=== PATIENT | female | born 1960 | race Caucasian/White ===

== ENCOUNTER 2022-11-02 09:11 | Outpatient (NON) | payer BC, SELFPAY | END 2022-11-02 09:12 | disposition home or self-care (01) | PROVIDERS: Visit Provider Nurse Practitioner | DX: C44.310 Basal cell carcinoma of skin of unspecified parts of face (principal) | CPT/HCPCS: 88305; 88331 ==

== ENCOUNTER 2025-08-26 11:26 | Emergency (ER) | payer BC, SELFPAY ==
--- OUTSIDE RECORDS SUMMARY | 2025-08-26 11:28 | XMS_ITS | Encounter Summary ---
Author Organization [facility] Address [address] [place] [address] Care Team Providers Care Slasher Tender Helper Name Role Phone Markus Orozco MD Primary Care Provider [phone]- [phone] Encounter Details Date Type Department Care Team (Late st Contact Info) Description 06/23/2024 [employer] Message Enc [facility] Family & Internal Medicine [facility] [address] [place] [address] [place] [address] [place] [address] Refill Wegovy Social History Tobacco Use Types Packs/Day Years Used Date Smoking Tobacco: Never Smokeless Tobacco: Never Comments:no hx tobacco use Alcohol Use Standard Drinks/Week Comments Yes 0 (1 standard drink = 0.6 oz pure alcohol) soccially /1 glass wine once monthly AUDIT-C Answer Date Recorded Frequency of Alcohol Consumption Never 08/22/2018 Average Number of Drinks Not on file 018 Frequency of Binge Drinking Not on file 08/06 PHQ-2 Answer Date Recorded Patient Health Questionnaire-2 Score 0 03/16/2023 Education Answer Date Recorded What is the highest level of school you have completed or the highest degree you have received? Some college, no degree 08/22/2018 Comments No Sex and Gender Information Value Date Recorded Sex Assigned at Female 12/13/2023 7:59 AM CDT Legal Sex Female 9:12 PM CDT Gender Identity Female 12/13/2023 7:59 AM CDT Sexual Orientation Straight 12/13/2023 7: 59 AM CDT Occupation Industry Job Start Date Job End Date Not on file Not on file Not on file Not on file documented as of this encounter Plan of Treatment Upcoming Encounters Date Type Department Care Team (Late st Contact Info) Description 05/14/2026 11:00 AM CDT Appointment [facility] [address] [place] [address] Margi Self, SAIRA [address] [facility] [address] [place] [address] documented as of this encounter Visit Diagnoses Not on filedocumented in this encounter Additional Health Concerns Assessment Noted Time PHQ-9 Depression Total Score: 0 10/21/19 22 10:29 AM PAPERHANGER documented as of this encounter Care Teams Slasher Tender Helper Relationship Specialty [place] [address] [place] [address] PCP - General FAMILY PRACTICE 08/22/18 documented as of this encounter
--- OUTSIDE RECORDS SUMMARY | 2025-08-26 11:28 | XMS_ITS | Encounter Summary ---
Author Organization [facility] Address [address] [place] [address] Care Team Providers Care Semiconductor Packages Tester Name Role Phone Markus Orozco MD Primary Care Provider [phone]- [phone] Encounter Details Date Type Department Care Team (Late st Contact Info) Description 05/17/2024 [employer] Message Enc [facility] Medical Group Family & Internal Medicine [facility] [address] [place] [address] [place] [address] [place] [address] Possible tick bite? Social History Tobacco Use Types Packs/Day Years [...] on file documented as of this encounter Progress Notes * Nicole Garcia MA - 05/18/2024 7:22 AM CDT Print to discuss with dr documented in this encounter Plan of Treatment Upcoming Encounters Date Type Department Care Team (Late st Contact Info) Description 05/14/2026 11:00 AM CDT Appointment [facility] [address] [place], [place] [id number] Margi Self NP [address] [facility] [address] [place] [address] documented as of this encounter Visit Diagnoses Not on filedocumented in this encounter Additional Health Concerns Assessment Noted Time PHQ-9 Depression Total Score: 0 10/21/19 22 10:29 AM ARTS THERAPIST documented as of this encounter Care Teams Semiconductor Packages Tester Relationship Specialty [place] [address] [place] [address] PCP - General FAMILY PRACTICE 08/22/18 documented as of this encounter
--- OUTSIDE RECORDS SUMMARY | 2025-08-26 11:28 | XMS_ITS | Encounter Summary ---
Author Organization [facility] Address [address] [place] [address] Care Team Providers Care Supervisor Pigment Making Name Role Phone Markus Orozco MD Primary Care Provider [phone]- [phone] Encounter Details Date Type Department Care Team (Late st Contact Info) Description 05/26/[address] [employer] [facility] Medical Group Family & Internal Medicine [facility] [address] [place] [address] [place] [address] [place] [address] Wegovy refill Social History Tobacco Use Types Packs/Day Years [...] Info) Description 05/14/2026 11:00 AM CDT Appointment [facility] [address] [place] [address] Margi Self, SAIRA [address] [facility] [address] [place] [address] documented as of this encounter Visit Diagnoses Not on filedocumented in this encounter Additional Health Concerns Assessment Noted Time PHQ-9 Depression Total Score: 0 10/21/19 22 10:29 AM VISUAL C DEVELOPER documented as of this encounter Care Teams Supervisor Pigment Making Relationship Specialty Start [place] [address] [place] [address] PCP - General FAMILY PRACTICE 08/22/18 documented as of this encounter
--- OUTSIDE RECORDS SUMMARY | 2025-08-26 11:29 | XMS_ITS | Data Portability ---
Author Organization [facility], [id number] Address [address] [place] [address] Assessment No assessment recorded. Plan of Treatment Reminders Order Date Submit Date Provider Last Modified By Organization Details Last Modified Time Details Appointments ANNUAL- EST 15 2025 10:00A M SHAGGY MERAZ Not available Not available Not available Lab None recorded. Referral None recorded. Procedures None recorded. Surgeries None recorded. Imaging MAMMO, screening , digital, bilateral 2024 [facility]25 [facility]), [address] [place], [address], 05/30/2025 11:39:57 Medication Orders valacyclo vir 500 mg tablet 2024 025 [facility], [address] [facility] [address], [address], 05/30/2025 10:00:38 Patient TargetsNo targets recorded. Patient InstructionsNo instructions recorded. Reason for Referral None Reported. Results Created Date Observation Date Name Description Value Unit Range Abnormal Flag Note LastModifiedBy Organization Detail LastModifiedTime 04/30/2004/30/2025 DEXA No [email or web address] [address] [place], [address], 05/16/2025 09:33:21 05/11/20 25 05/10/2025 MAMMO , scree yamileth, bilat eral No observ ation record ed. [email or web address] [facility] [address] [place], [address], 05/23/2025 16:28:01 Result Notes None recorded. 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 Fibromyalg ia, Problem Code: 729.1; Problem Code Type: ICD-9; Startdate: '2001'; Not Available [facility] 12:19:23 Uterine fibroid polyp 585488187 Active Uterine Fibroids, Startdate: '1983'; Not Available [facility] 12:19:23 Genital herpes simplex 00807869 Active Genital Herpes, Startdate: '1993'; Problem Code Descriptio n: 'Genital Herpes'; Not Available [facility] 12:19:23 Arthritis 0751950 Active Arthritis, Startdate: '02/13'; Problem Code Descriptio n: 'Arthritis '; Not Available [place] 12:19:23 Gastroeso phageal reflux disease 716164788 Active 2014 Acid Reflux/MARIAM D, Problem Code: 530.81; Problem Code Type: ICD-9; Not Available [facility] 12:19:23 Atrophic vulva 221274053 Active 2016 Vulvar atrophy, Problem Code: 624.1; Problem Code Type: ICD-9; Not Available [facility] 12:19:23 Herpes labialis 5203919 Active 2024 SHAGGY MERAZ [address], [place], [address] , [facility] 5 09:57:45 Disorder of breast 54364797 Active 2024 Bebeto [place], [facility] 12:40:16 Lesion of vulva 058297093 Active 2024 SHAGGY Sheldon YUMIKO MERAZ [address], [place], [address] , [facility] 13:01:20 Problem Notes None recorded. Procedures Surgical History Date Name Laterality Status Provider Name and Address Organization Details Recorded Time 07/05/20 25 Incision & Drainage Procedure Note (UEHRC) completed SHAGGY Sheldon YUMIKO MERAZ [address], [place], [address], [facility] 07/05/2025 13:13:24 05/10/20 25 Date of Last Mammogram completed Marian Amador (TERMED) [facility] 05/30/2025 09:40:36 09/06/19 23 Date of Last Pap Smear completed Marian Amador (TERMED) [facility] 05/30/2025 09:43:01 09/06/19 22 Date of Last Colonoscopy completed Marian Amador (TERMED) [facility] 05/24/2025 11:23:32 Breast augmentation w/implt completed Not Available [facility] 01/04/2025 14:24:59 Jackie arthrs srg rt8tr cuf rpr completed Not Available [facility] 01/04/2025 14:24:59 Appendectomy completed Not Available [facility] 01/04/2025 14:25:00 Laparoscopic cholecystectomy completed Not Available [facility] 01/04/2025 14:25:00 Removal of ovary(s) completed Not Available [facility] 01/04/2025 14:25:00 cataract surgery completed Not Available [facility] 01/04/2025 14:25:00 dilation and curettage completed Not Available [facility] 01/04/2025 14:25:00 tonsillectomy completed Not Available [facility] 01/04/2025 14:25:00 hysterectomy completed Not Available [facility] 01/04/2025 14:25:00 vaginal hysterectomy completed Not Available [facility] 01/04/2025 14:25:01 colonoscopy completed Not Available [facility] 01/04/2025 14:25:01 Dilation and Curettage completed Marian Amador (TERMED) [place] [facility] [place] [facility] 05/30/2025 09:40:44 Orthopedic Surgery completed Marian Amador (TERMED[place] [facility] 05/30/2025 09:40:44 Oophorectomy completed Marian Amador (TERMED) [place] [facility] 05/30/2025 09:40:44 Total Hysterectomy completed Marian Amador (TERMED[place] [facility] 05/30/2025 09:40:45 Appendectomy completed Marian Amador (TERMED[place] [facility] 05/30/2025 09:40:45 Breast Surgery completed Marian Amador (TERMED[place] [facility] 05/30/2025 09:40:45 Caesarean Section completed Marian Amador (TERMED[place] [facility] 05/30/2025 09:40:45 Colonoscopy completed Marian Amador (TERMED[place] [facility] 05/30/2025 09:40:45 Imaging Results None recorded. Procedure Notes None recorded. Medical Equipment None Reported. Allergies Allergen ID Allergen Name Allergen Category Reaction Reaction Severity Criticality Documentation Date Start Date Code Code System Note Provider Name and Address Organization Details Recorded Time 723792 propoxyph meg hydrochlo ride medicatio n Not available Not available Not available 01/04/2025 02891 RxNorm Aller gyRea ction : 'naus ea, vomit , shake s'; Not Available [facility] 12:28:25 816298 Duragesic medicatio n Not available Not available Not available 01/04/2025 36980 8 RxNorm Aller gyRea ction : 'naus ea, vomit , shake s'; Not Available [facility] 12:28:25 705057 codeine medicatio n Not available Not available Not available 01/04/2025 2670 RxNorm Aller gyRea ction : 'naus ea, vomit , shake s'; Not Available [facility] 12:28:25 497706 diphenhyd ramine hydrochlo ride medicatio n Not available Not available Not available 01/04/2025 1362 RxNorm Dicyc lomin e Diarr hea, Dicyc lomin e Nasal conge stion , Dicyc lomin e Nause a, Dicyc lomin e Vomit ing, Other Diarr hea, Other Nasal conge stion , Other Nause a, Other Vomit ing Not Available [facility] 12:28:25 Medications Name Sig Start Date Stop Date Status Note LastModified by Organization Details LastModified Time mucus rlf d 60-600mg 12hr tablets TAKE 1 TABLET BY MOUTH TWICE DAILY active Not Available Not Available No t Available valacyclovi r 500 mg tablet TAKE 1 TABLET BY MOUTH EVERY 12 HOURS FOR 3 DAYS active Not Available Not Available No t Available levothyroxi ne 25 mcg tablet TAKE 1 TABLET BY MOUTH ONCE DAILY IN THE MORNING active Not Available Not Available No t Available amoxicillin 875 mg tablet 05/30 completed Not Available Not Available Not Available mirtazapine 45 mg tablet TAKE 1 TABLET BY MOUTH NIGHTLY AT BEDTIME 07/05 completed Not Available Not Available Not Available albuterol sulfate HFA 90 mcg/actuati on aerosol inhaler INHALE 2 PUFFS INTO THE LUNGS EVERY 4 HOURS NEEDED active Not Available Not Available No t Available fluticasone propionate 50 mcg/actuati on nasal spray,suspe nsion USE 2 SPRAY(S) IN EACH NOSTRIL TWICE DAILY FOR 3 DAYS THEN 1 ONCE DAILY THEREAFTE R 07/05 completed Not Available Not Available Not Available [facility] 1.7 mg/0.75 mL subcutaneou s pen injector INJECT 1 SYRINGE SUBCUTANE OUSLY ONCE A WEEK active Not Available Not Available No t Available We[facility] 1 mg/0.5 mL subcutaneou s pen injector ADMINISTE R 1 MG UNDER THE SKIN 1 TIME A WEEK FOR WEIGHT LOSS 05/30 completed Not Available Not Available Not Available [facility] 0.5 mg/0.5 mL subcutaneou s pen injector ADMINISTE R 0.5 MG UNDER THE SKIN 1 TIME A WEEK FOR WEIGHT LOSS 05/30 completed Not Available Not Available Not Available Vitals Date Recorded Body height Body mass index (BMI) Body weight Systolic And Diastolic Provider Name and Address Organization Details Last Updated DateTime 05/30/2025 162.56 cm 30.4 kg/m2 90088.85 g 122/60 mm[Hg] Marian Amador (TERMED) [facility] 05/30/2025 09:46:50 Social History Question Answer Notes LastModified by [employer] Details LastModified Time Tobacco Smoking Status Never Smoker Not Available [facility] 01/04/2025 15:34:10 Do You Have An Advance Directive? Yes Information not available 05/30/2025 If You Are , What Was Your Level Of Alcohol Consumption Prior To ? Occasional [email or web address] Information not available 05/30/2025 How Many Years Have You Consumed Alcohol? 45 [email or web address] Information not available 05/30/2025 What Is Your Level Of Caffeine Consumption? Moderate [email or web address] Information not available 05/30/2025 What Type Of Diet Are You Following? REGULAR [email or web address] Information not available 05/30/2025 How Many Times Per Week Do You Exercise? Less Than 1 Time Per Week SocialHisto ryQuestion: 'Minimal Amount Of Exercise (Once Weekly Or Less)'; Information not available 01/04/2025 What Is Your Relationship Status? Information not available 05/30/2025 Sex: Female Functional Status Question Answer Note LastModified by [employer] Details LastModified Time Do you use any illicit or recreational drugs? No Information not available 01/04/2025 What is your level of alcohol consumption? Occasional Qty: 0-2 per day; Age Start/Stop: 18/ Information not available 01/04/2025 Are you currently employed? No [email or web address] Information not available 05/30/2025 What is your occupation? Note: Retired Information not available 01/04/2025 Mental Status None recorded. Family History Relationship Description Onset Age of this Age Resolved Age Notes LastModified by Organization Details LastModified Time Maternal Grandfather Cerebrovascu lar accident Stroke Not available 09/2024 15:14:53 Maternal Grandfather Alzheimer's disease Alzhei nano's Diseas e Not available 07/05/2025 12:21:35 Father Malignant neoplastic disease Cancer mgm- colon father - lung Not available 01/04/2025 15:14:54 Father Diabetes mellitus Diabet es Not available 01/04/2025 15:14:54 Maternal Grandmother Malignant neoplastic disease Cancer mgm- colon father - lung Not available 01/04/2025 15:14:54 Maternal Grandmother Diabetes mellitus Diabet es Not available 01/04/2025 15:14:54 Mother Hypertensive disorder High Blood Pressu re Not available 01/04/2025 15:14:54 Maternal Grandmother Disorder of thyroid gland [email or web address] Not available 2024 09:40:30 Maternal Grandmother Hypothyroidi sm [email or web address] Not available 2024 09:40:30 Mother Disorder of thyroid gland [email or web address] Not available 2024 09:40:30 Mother Hypothyroidi sm [email or web address] Not available 2024 09:40:30 Medical History Condition Response Cancer- Skin Y Cancer- Genetic screening Y GI- Irritable Bowel Syndrome Y Endocrinology- Hypothyroidism Y ID- Herpes Y Reviewed with no changes Y Rheumatology- Fibromyalgia/Chronic Pain Y ID-Other Y GI- Reflux/Ulcers Y Rheumatology- Arthritis Y Gynecological History Statement/Question Response Date of Last Mammogram 05/10/2025 Flow Heavy History of Fibroids Y Date of LMP 09/06/1083 Current Control Method: Hysterecto my Cologuard Testing Y History of Recurrent Ovarian Cysts N If Post Menopausal, Age at Menopause 43 Post Menopausal Hormone Therapy User Nev er Date of Last Colonoscopy 09/06/2021 Date of Last Diabetes Screening 12/06/19 Date of Last Cholesterol Screening 12/05 History of PCOS N History of Infertility N History of Cervical Dysplasia N History of Vulvar Dysplasia N Current Control Method Menopause Age at Menarche 11 History of Endometriosis N Frequency of Cycle (Q days) 28 Sexually Active? N History of Abnormal PAP N History of Dysmenorrhea N Date of Last Pap Smear 09/06/2022 History of Sexually Transmitted Infectio n Y Date of Last Bone Density 05/04/2025 Obstetrics History GPAL:G 4 P 2 0 2 2 Type Value Multiple Births 0 Full Term 2 Induced 0 Spontaneous 2 Premature 0 Living 2 Ectopics 0 Total 4 Immunizations Vaccine Type Date Status Note Provider Nam e and Address Organization Details Recorded Time Influenza, split virus, quadrivalent, PF 09/17/2015 completed Not Available [facility] 5 09:39:56 Influenza, split virus, quadrivalent, PF 08/13/2016 completed Not Available [facility] 5 09:39:56 Influenza, split virus, quadrivalent, PF 09/29/2018 completed Not Available [facility] 5 09:39:56 Influenza, split virus, quadrivalent, PF 06/19/2019 completed Not Available [facility] 5 09:39:56 Influenza, MDCK, quadrivalent, PF 06/08/2020 completed Not Available [facility] 5 09:39:56 COVID-19, mRNA, LNP-S, PF, 30 mcg/0.3 mL dose 12/05/2020 completed Not Available [facility] 5 09:39:56 COVID-19, mRNA, LNP-S, PF, 30 mcg/0.3 mL dose 12/26/2020 completed Not Available [facility] 5 09:39:56 Influenza, split virus, quadrivalent, PF 07/11/2021 completed Not Available [facility] 5 09:39:56 Influenza, split virus, quadrivalent, PF 07/27/2022 completed Not Available [facility] 5 09:39:56 Tdap 03/16/2023 completed Not Available [facility] 05/30/2025 09:39:56 Past Encounters Encounter ID Performer Location Encounter Start Date Encounter Closed Date Diagnosis/Indication Diagnosis SNOMED-CT Code Diagnosis ICD10 Code Diagnosis IMO Codes Diagnosis Note [id number] SO KATZ MD [id number] [address] [facility] [place] [address] 05/30/2025 09:37:12 05/30/2025 10:00:22 Screening mammography 90640481 Z12.31 [id number] -call to schedule mammogram Herpes labialis 5104398 B00.1 361800 05/30/25-co ntinue valacyclov ir as directed-c all if you want to start prophylact ic use Gynecologi c examination 76046250 Z01.807 7321636 -f/u 1 year for annual TECHNICAL AID exam Mental hea lt screening 878793035 Z13.30 [id number] 05/30/25-ga d score 0-phq score 2 [id number] SO KATZ MD [id number] [facility] [address]_[place] [address] [facility] [[email or web address] [address] [place] [address] 07/05/2025 12:21:22 07/05/2025 13:12:18 Lesion of vulva 227292029 N90.89 972382 07/05/25-u se warm, epsom salt soaks as needed-yuridia p pressure to area with 4x4s to prevent from refilling Health Concerns Section Related Observation LastModified by Organization Detai ls LastModified Time None Recorded Concern Status LastModified by Organization Details LastModified Time None Recorded Advance Directives Directive Y: Payers Insurance Date Sequence Insurance Name Policy Number Policy Webb Covered Member ID Webb Member ID Guarantor Name 07/04/2025 1 [place] 105 Enrike Guevara Head [id number] Enrike Head Notes Date Note Type Note Provider Name and Address Organization Details Recorded Time 05/30/2025 text/html [facility] Annual Well-Women Visit Age 65+Reported by PatientPreventive Health ScreeningsFor current medical history, patient reportsreviewed and documented. For mammography, patient reportsdue. For colorectal screening, patient xpcooslvz-zj-pitq.Sexu ally ActiveFor sexually active, patient reportsno: __.STI ScreenFor sti screen, patient reportsdeclines sti testing.Genito-urinary SymptomsFor vagina, patient reportsvaginal dryness (using something otc which works well). 05/30/25 here for annual. doing well, denies c/o. has HSV outbreak approx q2mo. uses valacyclovir PRN-tried prophylactic use in the past but did not notice a difference in amount of outbreaks. -karl MERAZ [address], [place], [address], [facility] 05/30/2025 10:06:47 07/05/2025 text/html 07/05/25 here for possible blood blister on labia x 2 days. felt a little itching 2 days ago and today noticed a spot. denies any use of blood thinners. would like to us to I&D blister today. -karl MERAZ [address], [place], [address], [facility] 07/05/2025 13:14:37 OBGyn Episode Ob Episode Information Episode Created Date Number of Fetuses Patient Bloodtype Patient rh Status Prepregnancy Weight lbs Domestic Partner Domestic Partner Phone Father Name [place] Status 01/20/20 25 1 CLOSED Fetus Data First Name Last Name Admitted to NICU Weight (g) Sex Living Outcome Pediatric Complications Fetus ID Race Codes Race Delivery Type F [id number] Vaginal Honorio Calculation Initial Honorio Date Initial Exam Date Initial Exam Provider Initial Ultrasound Date Last Menstrual Period Date Ultra Sound Weeks Gestation 0 Eighteen To Twenty Week Honorio Update Ultra Sound Date Fundal Height At Umbil Quickening Date Ultra Sound Latest Weeks Gestation Final Honorio Confirmed By Final Honorio Confirmed Date Final Honorio Date Ultra Sound Latest Days Gestation 0 0 Menstrual History Last Menstrual Date Menses Monthly On Bcp Conception Prior Menses Frequency Hcg Plus Date Menarche Onset Age Delivery Information Delivery Date Delivery Type Labor Anesthesia Weeks Gestation Incision Type Labor Labor Length Hrs Delivered By Post Complications Tubal Sterilization Discharge Date Comments 0 , Discharge Information Feeding Method Contraceptive Method Maternal HG B and HCT Levels
--- OUTSIDE RECORDS SUMMARY | 2025-08-26 11:29 | XMS_ITS | Encounter Summary ---
Author Organization [facility] Address [address] [place] [address] Care Team Providers Care Engineering And Development Director Name Role Phone Markus Orozco MD Primary Care Provider [phone] Encounter Details Date Type Department Care Team (Late st Contact Info) Description 07/21/2024 Utilize Health Message Enc [facility] Family & Internal Medicine [facility] [address] [place] [address] [place] [address] [place] [address] Wegovy refill Social History Tobacco [...] Info) Description 05/14/2026 11:00 AM CDT Appointment [facility] [address] [place] [address] Margi Self, SAIRA [address] [facility] [address] [place] [address] documented as of this encounter Visit Diagnoses Not on filedocumented in this encounter Additional Health Concerns Assessment Noted Time PHQ-9 Depression Total Score: 0 10/21/19 22 10:29 AM WASHHOUSE HAND documented as of this encounter Care Teams Engineering And Development Director Relationship Specialty Start [place] [address] [place] [address] PCP - General FAMILY PRACTICE 08/22/18 documented as of this encounter
--- OUTSIDE RECORDS SUMMARY | 2025-08-26 11:29 | XMS_ITS | Encounter Summary ---
Author Organization [facility] Address [address] [place] [address] [place] [address] Care Team Providers Care Survey Technologist Name Role Phone Unavailable Primary Care Provider Unavailabl e Reason for Visit * Reason Onset Date Comments Results 05/02/2020 Encounter Details Date Type Department Care Team (Late st Contact Info) Description 05/02/2020 Telephone [facility] [address] [place] [id number] Kim Avilez Results Social History Tobacco Use Types Packs/Day Years Used Date Smoking Tobacco: Never Assessed Comments Unknown Sex and Gender Information Value Date Recorded Sex Assigned at Not on file Legal Sex Female 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 Unable to assess 04/30/2020 12:17 PM CDT documented as of this encounter Miscellaneous Notes * Telephone Encounter - Kim Avilez - 05/02/2020 5:17 PM CDT Pt was notified of negative covid result and voiced understanding 05-02-20 documented in this encounter Plan of Treatment Not on file documented as of this encounter Visit Diagnoses Not on filedocumented in this encounter
--- OUTSIDE RECORDS SUMMARY | 2025-08-26 11:29 | XMS_ITS | Encounter Summary ---
Author Organization [facility] Address [facility] [place] [address] Care Team Providers Care Operations Consultant Name Role Phone Markus Orozco MD Primary Care Provider [phone]- [phone] Encounter Details Date Type Department Care Team (Late st Contact Info) Description 12/19/2021 [employer] Message Enc [facility] Medical Group Multispecialty Care - [facility] [address] [place] [address] [place], [facility] Provider MRI results Social History Tobacco Use Types Packs/Day Years [...] on file 08/06 PHQ-2 Answer Date Recorded PHQ-2 Score - If the patient scores above 3, please move on to questions 3-9 0 10/21/2021 Education Answer Date Recorded What is the [...] file Not on file Not on file COVID-19 Exposure Response Date Recorded In the last 10 days, have ni yanez been in contact with someone who was confirmed or suspected to have Coronavirus/COVID-19? 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
--- OUTSIDE RECORDS SUMMARY | 2025-08-26 11:29 | XMS_ITS | Encounter Summary ---
Author Organization [facility] Address [address] [place] [address] Care Team Providers Care Inspector Plating Name Role Phone Markus Orozco MD Primary Care Provider [phone]- [phone] Encounter Details Date Type Department Care Team (Late st Contact Info) Description 04/28/2024 [employer] Message Enc [facility] Medical Group Family & Internal Medicine [facility] [address] [place] [address] [place] [address] [place] [address] [employer] Social History Tobacco Use Types Packs/Day [...] Info) Description 05/14/2026 11:00 AM CDT Appointment [facility] [address] [place] [address] Margi Self, SAIRA [address] [facility] [address] [place] [address] documented as of this encounter Visit Diagnoses Not on filedocumented in this encounter Additional Health Concerns Assessment Noted Time PHQ-9 Depression Total Score: 0 10/21/19 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
--- OUTSIDE RECORDS SUMMARY | 2025-08-26 11:29 | XMS_ITS | Continuity of Care Document ---
Author Organization [facility], [id number] [facility] _[place] Address [address] [place] [address] Assessment No assessment recorded. Plan of Treatment Reminders Order Date Submit Date Provider Last Modified By Organization Details Last Modified Time Details Appointments ANNUAL- EST 15 2025 10:00A M SHAGGY TONGNP Not available Not available Not available Lab None recorded. Referral None recorded. Procedures None recorded. Surgeries None recorded. Imaging MAMMO, screening , digital, bilateral [email or web address] [address] [place], [address], 05/30/2025 11:39:57 Medication Orders valacyclo vir 500 mg tablet 2024 025 [facility] [address], [address] [facility] [address], [place], [address], 05/30/2025 10:00:38 Patient TargetsNo targets recorded. Patient InstructionsNo instructions recorded. Reason for Referral None Reported. Results Created Date Observation Date Name Description Value Unit Range Abnormal Flag Note LastModifiedBy Organization Detail LastModifiedTime 04/30/2004/30/2025 DEXA No observ ation [facility] [address] [facility], [place], [address], 05/16/2025 09:33:21 05/11/20 25 05/10/2025 MAMMO , scree yamileth, bilat eral No observ ation [facility] ed. [email or web address] [address], [place], [address], 05/23/2025 16:28:01 Result Notes None recorded. 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 Fibromyalg ia, Problem Code: 729.1; Problem Code Type: ICD-9; Startdate: '2001'; Not Available [facility] 12:19:23 Uterine fibroid polyp 054644520 Active Uterine Fibroids, Startdate: '1983'; Not Available [facility] 12:19:23 Genital herpes simplex 00174370 Active Genital Herpes, Startdate: '1993'; Problem Code Descriptio n: 'Genital Herpes'; Not Available [facility] 12:19:23 Arthritis 4611836 Active Arthritis, Startdate: '02/13'; Problem Code Descriptio n: 'Arthritis '; Not Available [facility] 12:19:23 Gastroeso phageal reflux disease 797101286 Active 2014 Acid Reflux/MARIAM D, Problem Code: 530.81; Problem Code Type: ICD-9; Not Available [facility] 12:19:23 Atrophic vulva 624004211 Active 2016 Vulvar atrophy, Problem Code: 624.1; Problem Code Type: ICD-9; Not Available [facility] 12:19:23 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 Procedures Surgical History Date Name Laterality Status Provider Name and Address Organization Details Recorded Time 07/05/20 25 Incision & Drainage Procedure Note (UEHRC) completed SHAGGY Sheldon YUMIKO MERAZ [address] [facility] [address], [place], [address], [facility] 07/05/2025 13:13:24 05/10/20 25 Date of Last Mammogram completed Marian Amador (TERMED) [facility] 05/30/2025 09:40:36 09/06/19 23 Date of Last Pap Smear completed Marian Amador (TERMED) [facility] 05/30/2025 09:43:01 09/06/19 22 Date of Last Colonoscopy completed Marian Amador (TERMED) [facility] 05/24/2025 11:23:32 Breast augmentation w/implt completed Not Available [facility] 01/04/2025 14:24:59 Jackie arthrs srg rt8tr cuf rpr completed Not Available [facility] 01/04/2025 14:24:59 Appendectomy completed Not Available [facility] 01/04/2025 14:25:00 Laparoscopic cholecystectomy completed Not Available [facility] 01/04/2025 14:25:00 Removal of ovary(s) completed Not Available [facility] 01/04/2025 14:25:00 cataract surgery completed Not Available [facility] 01/04/2025 14:25:00 dilation and curettage completed [facility] 01/04/2025 14:25:00 [facility]lectomy completed [facility] 01/04/2025 14:25:00 hysterectomy completed Not Available [facility] 01/04/2025 14:25:00 vaginal hysterectomy completed [facility] Available [facility] 01/04/2025 14:25:01 colonoscopy completed Not Available [facility] 01/04/2025 14:25:01 Dilation and Curettage completed Marian Amador (TERMED) [place] [facility] [place] [facility] 05/30/2025 09:40:44 Orthopedic Surgery completed Marian Amador (TERMED) [place] [facility] 05/30/2025 09:40:44 Oophorectomy completed Marian Amador (TERMED) [place] [facility] 05/30/2025 09:40:44 Total Hysterectomy completed Marian Amador (TERMED) [place] [facility] 05/30/2025 09:40:45 Appendectomy completed Marian Amador (TERMED) [place] [facility] 05/30/2025 09:40:45 Breast Surgery completed Marian Amador (TERMED) [place] [facility] 05/30/2025 09:40:45 Caesarean Section completed Marian Amador (TERMED) [place] [facility] 05/30/2025 09:40:45 Colonoscopy completed Marian Amador (TERMED) [place] [facility] [place] [facility] 05/30/2025 09:40:45 Imaging Results None recorded. Procedure Notes None recorded. Medical Equipment None Reported. Allergies Allergen ID Allergen Name Allergen Category Reaction Reaction Severity Criticality Documentation Date Start Date Code Code System Note Provider Name and Address Organization Details Recorded Time 910334 propoxyph meg hydrochlo ride medicatio n Not available Not available Not available 01/04/2025 92214 RxNorm Aller gyRea ction : 'naus ea, vomit , shake s'; Not Available [facility] 12:28:25 284416 Duragesic medicatio n Not available Not available Not available 01/04/2025 03865 8 RxNorm Aller gyRea ction : 'naus ea, vomit , shake s'; Not Available [facility] 12:28:25 781700 codeine medicatio n Not available Not available Not available 01/04/2025 2670 RxNorm Aller gyRea ction : 'naus ea, vomit , shake s'; Not Available [facility] 12:28:25 733443 diphenhyd ramine hydrochlo ride medicatio n Not available Not available Not available 01/04/2025 1362 RxNorm Dicyc lomin e Diarr hea, Dicyc lomin e Nasal conge stion , Dicyc lomin e Nause a, Dicyc lomin e Vomit ing, Other Diarr hea, Other Nasal conge stion , Other Nause a, Other Vomit ing Not Available [facility] 12:28:25 Medications Name Sig Start Date Stop [...] Updated DateTime 05/30/2025 162.56 cm 30.4 kg/m2 30713.85 g 122/60 mm[Hg] Marian Amador (TERMED) [facility] 05/30/2025 09:46:50 Social History Question Answer Notes LastModified by [employer] Details LastModified Time Tobacco Smoking Status Never Smoker Not Available [facility] 01/04/2025 15:34:10 Do You Have An Advance Directive? Yes [email or web address] Information not available 05/30/2025 If You Are , What Was Your Level Of Alcohol Consumption Prior To ? Occasional [email or web address] Information not available 05/30/2025 How Many Years Have You Consumed Alcohol? 45 [email or web address] Information not available 05/30/2025 What Is Your Level Of Caffeine Consumption? Moderate [email or web address] Information not available 05/30/2025 What Type Of Diet Are You Following? REGULAR [email or web address] Information not available 05/30/2025 How Many Times Per Week Do You Exercise? Less Than 1 Time Per Week SocialHisto ryQuestion: 'Minimal Amount Of Exercise (Once Weekly Or Less)'; Information not available 01/04/2025 What Is Your Relationship Status? Information not available 05/30/2025 Sex: Female Functional Status Question Answer Note LastModified by [employer] Details LastModified Time Do you use any illicit or recreational drugs? No Information not available 01/04/2025 What is your level of alcohol consumption? Occasional Qty: 0-2 per day; Age Start/Stop: 18/ Information not available 01/04/2025 Are you currently employed? No [email or web address] Information not available 05/30/2025 What is your occupation? Note: Retired Information not available 01/04/2025 Mental Status None recorded. Family History Relationship Description Onset Age of this Age Resolved Age Notes LastModified by Organization Details LastModified Time Maternal Grandfather Cerebrovascu lar accident Stroke Not available 09/2024 15:14:53 Maternal Grandfather Alzheimer's disease Alzhei nano's Diseas e [email or web address] Not available 07/05/2025 12:21:35 Father Malignant neoplastic [...] 15:14:54 Maternal Grandmother Disorder of thyroid gland Not available 2024 09:40:30 Maternal Grandmother Hypothyroidi sm [email or web address] Not available 2024 09:40:30 Mother Disorder of thyroid gland [email or web address] Not available 2024 09:40:30 Mother Hypothyroidi sm [email or web address] Not available 2024 09:40:30 Medical History Condition Response Cancer- Skin Y GI- Irritable Bowel Syndrome Y Cancer- Genetic screening Y Endocrinology- Hypothyroidism Y ID- Herpes Y [...] 09/06/2021 Date of Last Diabetes Screening 12/06/19 22 Date of Last Cholesterol Screening 12/05 History [...] virus, quadrivalent, PF 09/17/2015 completed Not Available [facility] 5 09:39:56 Influenza, split virus, quadrivalent, PF 08/13/2016 completed Not Available [facility] 5 09:39:56 Influenza, split virus, quadrivalent, PF 09/29/2018 completed Not Available [facility] 5 09:39:56 Influenza, split virus, quadrivalent, PF 06/19/2019 completed Not Available [facility] 5 09:39:56 Influenza, MDCK, quadrivalent, PF 06/08/2020 completed Not Available [facility] 5 09:39:56 COVID-19, mRNA, LNP-S, PF, 30 mcg/0.3 mL dose 12/05/2020 completed Not Available [facility] 5 09:39:56 COVID-19, mRNA, LNP-S, PF, 30 mcg/0.3 mL dose 12/26/2020 completed Not Available [facility] 5 09:39:56 Influenza, split virus, quadrivalent, PF 07/11/2021 completed Not Available [facility] 5 09:39:56 Influenza, split virus, quadrivalent, PF 07/27/2022 completed Not Available [facility] 5 09:39:56 Tdap 03/16/2023 completed Not Available [facility] 05/30/2025 09:39:56 Past Encounters Encounter ID Performer Location Encounter Start Date Encounter Closed Date Diagnosis/Indication Diagnosis SNOMED-CT Code Diagnosis ICD10 Code Diagnosis IMO Codes Diagnosis Note [id number] SO KATZ MD [id number] [facility] [facility] [place] [address] 05/30/2025 09:37:12 05/30/2025 10:00:22 Screening mammography 91389817 Z12.31 [id number] -call to schedule mammogram Herpes labialis 8176473 B00.1 435540 05/30/25-co ntinue valacyclov ir as directed-c all if you want to start prophylact ic use Gynecologi c examination 49539671 Z01.940 6426465 -f/u 1 year for annual 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 COLLECTOR exam Mental hea lth screening 442101369 Z13.30 [id number] 05/30/25-ga d score 0-phq score 2 Health Concerns Section Related Observation LastModified by Organization Detai ls LastModified Time None Recorded Concern Status LastModified by Organization Details LastModified Time None Recorded Payers Encounter Date Sequence Insurance Name Policy Number Policy Webb Covered Member ID Webb Member ID Guarantor Name 05/30/2025 1 [place] 105 Enrike Guevara Head [id number] Enrike Head Notes Date Note Type Note Provider Name and Address Organization Details Recorded Time 05/30/2025 text/html [facility] Annual Well-Women Visit Age 65+Reported by PatientPreventive Health ScreeningsFor current medical history, patient reportsreviewed and documented. For mammography, patient reportsdue. For colorectal screening, patient uqekmbrrr-zf-illw.Sexu ally ActiveFor sexually active, patient reportsno: __.STI ScreenFor sti screen, patient reportsdeclines sti testing.Genito-urinary SymptomsFor vagina, patient reportsvaginal dryness (using something otc which works well). 05/30/25 here for annual. doing well, denies c/o. has HSV outbreak approx q2mo. uses valacyclovir PRN-tried prophylactic use in the past but did not notice a difference in amount of outbreaks. -karl [facility] [address], [address], [facility] 05/30/2025 10:06:47 OBGyn Episode No OBEpisode recorded.
--- OUTSIDE RECORDS SUMMARY | 2025-08-26 11:29 | XMS_ITS | Clinical Summary ---
Author Organization [facility] Address [address] [place] [address] Care Team Providers Care Plumber And Tinner Name Role Phone Markus Orozco MD Primary Care Provider Allergies Active Allergy Reactions Criticality Noted Date Comments Dicyclomine Diarrhea,Nausea and Vomiting,Shakiness 05/05/2023 Morphine And Codeine Headache Low 03/15/2012 Nausea, vomiting, shakes Propoxyphene Nausea and Vomiting Low 03/15/2012 Headache, shakes Medications vitamin D3, cholecalciferol, 1000 UNIT Tab tablet Take 1 tablet (25 mcg total) by mouth daily. 4 Active Cyanocobalamin (VITAMIN B-12 CR) 1000 MCG Tab CR Take 1 tablet by mouth daily. 5 Active JOSE ANTONIO-D ALLERGY & CONGESTION 60-120 MG tabletIndication s:Sinusitis TAKE 1 TABLET BY MOUTH 2 TIMES A DAY 20 tablet 8 Active Additional Information Patient not taking.Reported on 01/08/2025 FLUTICASONE PROPIONATE 50 MCG/ACT nasal sprayIndications :Acute non-recurrent maxillary sinusitis UE 2 SPRAYS BY NASAL ROUTE DAILY FOR 14 DAYS. 48 mL 1 0 Active Additional Information Patient not taking.Reported on 01/08/2025 valACYclovir 1 g tablet Take 1 tablet (1,000 mg total) by mouth daily. 1 Active albuterol sulfate HFA (PROAIR HFA) 108 (90 Base) MCG/ACT inhalerIndicatio ns:Post-COVID chronic cough Inhale 2 puffs into the lungs every 4 (four) hours as needed for Wheezing. 18 g 4 Active pseudoephedrine- guaiFENesin ER (MUCINEX D) 60-600 MG TABLET SR 12 HR 12 hr tabletIndication s:Upper respiratory tract infection, unspecified type Take 1 tablet by mouth 2 (two) times daily. 60 tablet 4 Active levothyroxine (SYNTHROID) 25 MCG tabletIndication s:Hyperthyroidis m Take 1 tablet (25 mcg total) by mouth every morning. 90 tablet 1 5 Active mirtazapine (REMERON) 45 MG tabletIndication s:Depression, unspecified depression type TAKE 1 TABLET BY MOUTH NIGHTLY AT BEDTIME 90 tablet 5 Active Active Problems Problem Noted Date Diagnosed Date History of colon polyps 10/08/2022 Overview (10/08/2022): Added automatically from request for surgery [id number] Ocular migraine 01/22/2021 Wears hearing aid in both ears 03/22/2017 Dysthymia 01/26/2017 Disease of thyroid gland 02/05/2015 Chronic GERD 01/02/2015 Hypokalemia 01/02/2015 Resolved Problems Problem Noted Date Diagnosed Date Resolved Date Wears glasses 03/22/2017 05/17/2020 Encounter for preventive health examination 03/15/2012 05/17/2020 Encounters Date Type Department Care Team Description 07/04/2025 Travel 06/06/2025 MyChart Message Enc [facility] Family & Internal Medicine [address] [address] Markus Orozco MD Back on familia? from Last 3 Months Immunizations Immunization Administration Dates Next Due Flucelvax 6 Months+ (Prefill ed Syringe) 06/08/2020 Fluzone 6 Months+ Quad (0.5 mL Prefilled Syringe) 07/11/2021,06/19/2019,09/29/2018 Influenza (Generic) 09/17/2015,08/21/2013 Influenza Adult (Generic) 07/27/2022,11/2019,08/13/2016,2013 PFIZER COVID-19 (ORIGINAL FORMULATION, PURPLE CAP) mRNA, LNP-S, PF, 30 MCG/0.3 ML DOSE 12/26/2020,12/05/2020 Tdap (Adacel) 03/16/2023 Family History Medical History Relation Comments Cancer Father lung Diabetes Father Diabetes Mother Hypertension Mother Breast Cancer Neg Hx Relation Status Comments Father Mother Alive Social History Tobacco Use Types Packs/Day Years Used Date Smoking Tobacco: Never Smokeless Tobacco: Never Tobacco Cessation:Counseling Given: No Comments:no hx tobacco use Alcohol Use Standard [...] file Not on file Not on file Last Filed Vital Signs Vital Sign Reading Time Taken Comments Blood Pressure 114/79 01/08/2025 1:11 PM CDT Pulse 95 01/08/2025 1:11 PM CDT Temperature 36.7 C (98.1 F) 01/08/2025 1:11 PM CDT Respiratory Rate 16 01/08/2025 1:11 PM CDT Oxygen Saturation 98% 01/08/2025 1:11 PM CDT Inhaled Oxygen Concentration - - Weight 81.6 kg (180 lb) 01/08/2025 1:11 PM CDT Height 162.6 cm (5' 4) 01/08/2025 1:11 PM CDT Body Mass Index 30.9 01/08/2025 1:11 PM CDT Plan of Treatment Upcoming Encounters Date Type Department Care Team (Late st Contact Info) Description 05/14/2026 11:00 AM CDT Appointment [facility] [address] [place] [address] Shaggy Calderon, SAIRA [address] [place] [address] Health Maintenance Due Date Last Done Comments Hepatitis C 1976 Pneumococcal Vaccine: 50+ Years (1 of 1 - PCV) 2008 Zoster Vaccines (1 of 2) 2008 PHQ-2 (Physician [place]) 09/06/2024 COVID-19 Vaccine ( - season) 2025 12/26/2020, 12/05/2020 Influenza Adult (#1) 2025 07/27/2022, 07/11/2021, 06/08/2020, Additional history exists Mammogram Screening 05/10/2027 05/10/2025, 05/04/2024, 04/14/2023, Additional history exists Colorectal Cancer Screening Colonoscopy (10 Years) 11/13/2032 11/13/2022, 11/13/2022, 10/13/2016 DTaP, Tdap and Td Vaccines (2 - Td or Tdap) 03/16/2033 03/16/2023 RSV Immunization or 60+ Years (1 - 1-dose 75+ series) 2033 Dexa Scan (General) Completed 04/30/2025 Hepatitis A Vaccines Aged Out No long er eligible based on patient's age to complete this topic Meningococcal B Vaccine Aged Out No l onger eligible based on patient's age to complete this topic Meningococcal Vaccine Aged Out No pop delfina eligible based on patient's age to complete this topic RSV Immunizations Under 20 Months Aged Out No longer eligible based on patient's age to complete this topic Procedures Procedure Name Priority Date/Time Associated Diagnosis Comments [facility] VITAMIN D 25-OH Routine 07/04/2025 12:10 AM CDT [facility] WITH LIPID Routine 07/04/2025 12:10 AM CDT [facility] HEMOGLOBIN A1C Routine 07/04/2025 12:10 AM CDT MG SCREENING IMPLANT W KSENIA GAGAN DIGI Routine 05/10/2025 11:14 AM CDT Screening mammogram for breast cancer BONE DENSITY/DEXA Routine 04/30/2025 10: 23 AM CDT Postmenopausal COLONOSCOPY Routine 11/13/2022 8:35 AM COIL FORMER from Last 3 Months or Most Recently Relevant to Health Maintenance Results * (ABNORMAL) [facility]IR WITH LIPID (07/04/2025 12:10 AM CDT) WBC 8.12 4.4 - 11.0 x10'3/uL 07/04/2025 9:06 AM CDT [facility] RBC 5.34(H) 4.50 - 5.10 x10'6/uL 07/04/2025 9:06 AM CDT [facility] HGB 16.5(H) 12.3 - 15.3 G/DL 07/04/2025 9:06 AM CDT [facility] HCT 47.9(H) 35.9 - 44.6 % 07/04/2025 9:06 AM CDT [facility] MCV 89.7 80.0 - 96.0 FL 07/04/2025 9:06 AM CDT [facility] MCH 30.9 25.3 - 30.9 PG 07/04/2025 9:06 AM CDT [facility] MCHC 34.4(H) 31.0 - 34.1 G/DL 07/04/2025 9:06 AM CDT [facility] RDW 12.8 12.4 - 15.1 % 07/04/2025 9:06 AM CDT [facility] PLT 270 151 - 353 x10'3/uL 07/04/2025 9:06 AM CDT [facility] MPV 10.1 9.6 - 12.0 FL 07/04/2025 9:06 AM CDT [facility] RBC MORPHOLOGY NORMAL 07/04/2025 9:06 AM T [facility] PLT MORPH. NORMAL 07/04/2025 9:06 AM T [facility] WBC MORPHOLOGY NORMAL 07/04/2025 9:06 AM CDT [facility] LYMPHOCYTES % 27.7 15.8 - 45.0 % 07/04/2025 9:06 AM CDT [facility] NEUTROPHILS % 58.6 42.1 - 71.9 % 07/04/2025 9:06 AM CDT [facility] MONOCYTES % 6.0 5.7 - 12.5 % 07/04/2025 9:06 AM T [facility] EOSINOPHILS 6.2(H) 0.0 - 5.6 % 07/04/2025 9:06 AM T [facility] BASOPHILS 1.1 0.0 - 1.3 % 07/04/2025 9:06 AM T [facility] ABS. NEUTROPHILS 4.76 1.40 - 6.00 x10'3/uL 07/04/2025 9:06 AM T [facility] IMMATURE GRANS % 0.4 0.0 - 0.5 % 07/04/2025 9:06 AM T [facility] ABS. LYMPHOCYTES 2.25 0.80 - 4.70 x10'3/uL 07/04/2025 9:06 AM [facility] GLUCOSE 98 70 - 99 MG/DL 07/04/2025 1:26 PM T [facility] BUN 10 7 - 18 MG/DL 07/04/2025 1:26 PM T [facility] CREATININE S/P/B 0.87 0.55 - 1.02 MG/DL 07/04/2025 1:26 PM T [facility] SODIUM S/P/B 142 136 - 145 MMOL/L 07/04/2025 1:26 PM T [facility] POTASSIUM S/P/B 4.5 3.5 - 5.1 MMOL/L 07/04/2025 1:26 PM T [facility] CHLORIDE S/P/B 105 100 - 108 MMOL/L 07/04/2025 1:26 PM T [facility] CO2 23.3 21 - 32 MMOL/L 07/04/2025 1:56 PM T [facility] CALCIUM S/P/B 8.9 8.5 - 10.1 MG/DL 07/04/2025 1:26 PM T [facility] BILIRUBIN TOTAL S/P/B 0.6 0.2 - 1.2 MG/DL 07/04/2025 1:26 PM [facility] TOTAL PROTEIN S/P/B 7.0 6.4 - 8.2 G/DL 07/04/2025 1:26 PM [facility] ALBUMIN S/P/B 4.1 3.4 - 5.0 G/DL 07/04/2025 1:26 PM T [facility] AST 16 15 - 37 U/L 07/04/2025 1:26 PM T [facility] ALT 34 14 - 55 U/L 07/04/2025 1:26 PM T [facility] ALKALINE PHOSPHATASE S/P/B 100 50 - 136 U/L 07/04/2025 1:26 PM T [facility] ANION GAP 13.7 5 - 15 MMOL/L 07/04/2025 1:56 PM [facility] BUN CREATININE RATIO 11.5 6 - 26 07/04/2025 1:26 PM [facility] A/G RATIO 1.4 1.0 - 2.0 RATIO 07/04/2025 1:26 PM [facility] GFR ESTIMATE 73(L) >90 ML/MIN/1. 73 M2 07/04/2025 1:26 PM [facility] Comment: NOTE: eGFR is not calculated for patients <18 years of age. This is an estimated GFR calculation using the new CKD EPI creatinine equation without race and so does not require a correction factor for race. This estimated GFR should not be used for calculating drug doses. TSH 0.753 0.358 - 3.74 uIU/ML 07/04/2025 1:26 PM [facility] Comment: HIGH DOSES OF BIOTIN MAY INTERFERE WITH THIS TEST RESULT. CORRELATION TO CLINICAL HISTORY AND PRESENTATION RECOMMENDED. CHOLESTEROL 190 <200.0 MG/DL 07/04/2025 1:26 PM [facility] TRIGLYCERIDES 171(H) <150 MG/DL 07/04/2025 1:26 PM [facility] HDL 53 >40.0 MG/DL 07/04/2025 1:26 PM [facility] LDL (CALCULATED) 103(H) <100 MG/DL 07/04/2025 1:26 PM [facility] Comment:CALCULATED USING THE FRIEDEWALD EQUATION NON HDL CHOLESTEROL 137(H) <130 MG/DL 07/04/2025 1:26 PM [facility] CHOL/HDL RATIO 3.6 0.0 - 4.5 07/04/2025 1:26 PM [facility] VLDL CALCULATION 34 5 - 55 MG/DL 07/04/2025 1:26 PM [facility] LIPID INTERPRETATION 07/04/2025 1:26 PM CDT [facility] Comment: NIH CONCENSUS REPORT RECOMMENDATIONS: ADULT CHILD LOW RISK: CHOLESTEROL <200 <170 TRIGLYCERIDE <150 --- HDL >=60 --- LDL <100 <110 BORDERLINE: CHOLESTEROL 200-239 170-199 TRIGLYCERIDE 150-199 --- HDL 40-59 --- LDL 100-159 110-129 HIGH RISK: CHOLESTEROL >=240 >=200 TRIGLYCERIDE >=200 --- HDL <40 --- LDL >=160 >=130 07/04/2025 12:1 0 AM CDT Juan Manuel Stahl MD LABORATORY Final Result Performing Organization Address [facility] Co de Phone Number [facility] [address] [place] [address], [place] [phone] * HEMOGLOBIN, GLYCOSYLATED (07/04/2025 12:10 AM CDT) HGB A1C 5.4 <5.7 % 07/04/2025 10:54 AM CDT [facility] Comment: INCREASED RISK OF DIABETES <5.7% NON-DIABETES 5.7-6.4% INCREASED RISK FOR FUTURE DIABETES > OR = 6.5 CONSISTENT WITH DIABETES STANDARDS OF MEDICAL CARE IN DIABETES-2010 DIABETES CARE, 33(SUPP 1): S1-S61,2010 ESTIMATED AVG GLUCOSE 108 mg/dL 07/04/2025 10:54 AM CDT [facility] 07/04/2025 12:1 0 AM CDT Juan Manuel Stahl MD LABORATORY Final Result Performing Organization Address [facility]/ZIP Co de Phone Number [facility] [address] [place] [address], [place] [phone] * VITAMIN D, 25 OH (07/04/2025 12:10 AM CDT) VITAMIN D 25 HYDROXY S/P/B 52 30 - 100 NG/ML 07/04/2025 4:03 PM CDT [facility] Comment: INTERPRETATION DEFICIENT <20 INSUFFICIENT 20-29 SUFFICIENT 30-100 07/04/2025 12:1 0 AM CDT Juan Manuel Stahl MD LABORATORY Final Result [facility] [address] [place] [address], * MG SCREENING IMPLANT W KSENIA GAGAN DIGI (05/10/2025 11:14 AM CDT) Anatomical Region Laterality Modality Breast Bilateral Mammography 05/11/2025 3:09 PM CDT Impressions 05/11/2025 6:28 PM CDT ===== IMPRESSION: ===== 1. Stable mammographic appearance with no new findings to suggest malignancy in either breast. Assessment: ACR BI-RADS 2 - BENIGN FINDING(S) Recommendation: 1:Routine Screening Bilateral Comments: Ordered By: DEN FANG Interpreted By: Danni Gil, 05/11/2025 3:09 PM Narrative 05/11/2025 6:28 PM CDT [facility] [address] [place] [address] EXAMINATION: Digital bilateral screening mammogram with 3-D tomosynthesis EXAM DATE/TIME: 05/10/2025 10:19 AM REASON FOR EXAM: YEARLY MAMMO Bilateral implants in 1993 COMPARISON: 04/14/2023. 05/04/2024 Technique: Digital screening mammography of both breasts was performed in addition to 3-D Tomosynthesis technique. This study was read with the assistance of a computer-aided detection system. Tissue density: There are scattered areas of fibroglandular density. Findings: There is no new focal asymmetry, dominant mass lesion, area of skin thickening, or cluster of suspicious appearing calcifications in either breast to suggest malignancy. Bilateral breast prostheses are intact. Den Fang MD MAMMO Final Resul t * BONE DENSITY/DEXA (04/30/2025 10:23 AM CDT) Anatomical Region Laterality Modality Bone Bone Density 04/30/2025 8:34 PM CDT Impressions 04/30/2025 8:35 PM CDT IMPRESSION: WHO Classification: Normal RECOMMENDATIONS: All patients should ensure an adequate intake of dietary calcium and vitamin D. The NOF recommend adults under the age of 50 need 1000 mg of calcium and 400-800 IU of vitamin D daily. Effective therapy for the prevention and treatment of osteoporosis include bisphosphonates. Follow-up: People with diagnosed cases of osteoporosis or at high risk for fracture should have regular bone mineral density test. For patients eligible for Medicare, routine testing is allowed once every 2 years. Testing frequency can be increased to one year for patients who have rapidly progressing disease, those who are receiving or discontinuing medical therapy to restore bone mass, or have additional risk factors. Referred By: SHAGGY CALDERON Interpreted By: Uzair Rboerson MD, 04/30/2025 8:34 PM Narrative 04/30/2025 8:35 PM CDT [facility] [address] [place] [address] EXAMINATION: BONE DENSITY/DEXA INDICATIONS: Postmenopausal TECHNIQUE: DEXA bone mineral density evaluation was performed in the AP projection over the lumbar spine and both hips utilizing standard imaging techniques. ASSESSMENT: The BMD measured at the AP spine L1-L4 is 1.468 g/cm? with a T-score of 3.8. The BMD measured at the left femoral neck is 0.776 g/cm? with a T-score of -0.7. The BMD measured at the left hip is 0.964 g/cm? with a T-score of 0.2. The BMD measured at the right femoral neck is 0.790 g/cm? with a T-score of - 0.5. The BMD measured at the right hip is 0.971 g/cm? with a T-score of 0.2. FRAX 10-year fracture risk: FRAX not reported because all T-scores are at or above -1.0. Procedure Note Uzair Roberson MD - 04/30/2025 [facility] [address] [place] [address] EXAMINATION: BONE DENSITY/DEXA INDICATIONS: Postmenopausal TECHNIQUE: DEXA bone mineral density evaluation was performed in the APprojection over the lumbar spine and both hips utilizing standard imagingtechniques. ASSESSMENT: The BMD measured at the AP spine L1-L4 is 1.468 g/cm? with a T-score of3.8. The BMD measured at the left femoral neck is 0.776 g/cm? with a T-score of-0.7. The BMD measured at the left hip is 0.964 g/cm? with a T-score of 0.2. The BMD measured at the right femoral neck is 0.790 g/cm? with a T-scoreof -0.5. The BMD measured at the right hip is 0.971 g/cm? with a T-score of 0.2. FRAX 10-year fracture risk: FRAX not reported because all T-scores are at or above -1.0. IMPRESSION: WHO Classification: Normal RECOMMENDATIONS: All patients should ensure an adequate intake of dietary calcium andvitamin D. The NOF recommend adults under the age of 50 need 1000 mg ofcalcium and 400-800 IU of vitamin D daily. Effective therapy for theprevention and treatment of osteoporosis include bisphosphonates. Follow-up: People with diagnosed cases of osteoporosis or at high risk for fractureshould have regular bone mineral density test. For patients eligible forMedicare, routine testing is allowed once every 2 years. Testing frequencycan be increased to one year for patients who have rapidly progressingdisease, those who are receiving or discontinuing medical therapy torestore bone mass, or have additional risk factors. Referred By: SHAGGY CALDERON Interpreted By: Uzair Roberson MD, 04/30/2025 8:34 PM us Shaggy Calderon CORRECTIONAL FOOD SERVICE SUPERVISOR DEXA Final Result * Colonoscopy (10/13/2016 12:00 AM COIL FORMER) 10/13/2016 10/13/2016 Narrative [facility] TO EPIC CONVERSION - 10/13/2016 12:00 AM COIL FORMER Documented hx of procedure Procedure Note Jose Montoya MD - 07/10/2018 Documented hx of procedure us Generic Conversion Md MON[facility] GI PROCEDURE ORDERABLES Final Result [facility] TO EPIC CONVERSION from Last 3 Months or Most Recently Relevant to Health Maintenance Insurance Care Teams Plumber And Tinner Relationship Specialty [place] [address] [place] [address] PCP - General FAMILY PRACTICE 08/22/18
--- OUTSIDE RECORDS SUMMARY | 2025-08-26 11:29 | XMS_ITS | Encounter Summary ---
Author Organization [facility] Address [address] [place] [address] Care Team Providers Care Plastic Parts Fabricator Trimmer Name Role Phone Markus Orozco MD Primary Care Provider [phone] Encounter Details Date Type Department Care Team (Late st Contact Info) Description 06/06/2025 [employer] Message Enc [facility] Family & Internal Medicine [facility] [address] [place] [address] [place] [address] [place] [address] Back on [facility]? Social History Tobacco Use Types Packs/Day Years [...] Info) Description 05/14/2026 11:00 AM CDT Appointment [facility] [address] [place] [address] Margi Self NP [address] [facility] [address] [place] [address] documented as of this encounter Visit Diagnoses Not on filedocumented in this encounter Additional Health Concerns Assessment Noted Time PHQ-9 Depression Total Score: 0 10/21/19 22 10:29 AM ACCOUNT SPECIALIST documented as of this encounter Care Teams Plastic Parts Fabricator Trimmer Relationship Specialty [place] [address] [place] [place] [address] PCP - General FAMILY PRACTICE 08/22/18 documented as of this encounter
--- OUTSIDE RECORDS SUMMARY | 2025-08-26 11:29 | XMS_ITS | Clinical Summary ---
Author Organization [facility] Address [address] [place] [address] Care Team Providers Care Linseed Cake Trimmer Name Role Phone Unavailable Primary Care Provider Unavailabl e Source Comments [facility],non-owned Affiliates and Associated Physician Practices is amultiple site organization consisting of ambulatory clinics and hospital sitesin [place], [place], [place] and [place]. This disclosure is being madepursuant to the Care Everywhere program and may not contain all information available regarding this patient. 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 Gender Identity Not on file Sexual Orientation Not on file Plan of Treatment Health Maintenance Due Date Last Done Comments BONE DENSITY TESTING 1960 COLOGUARD (AGES 45-75) - COLON CA SCREENING 1958 COLON MONITORING 1958 COLONOSCOPY - COLON CA SCREENING 1958 CT COLONOGRAPHY - COLON CA SCREENING 1958 Colorectal Cancer Screening 1958 FIT - COLON CA SCREENING 1958 FLEX SIG - COLON CA SCREENING 1958 LIPID TESTING 1958 MAMMOGRAM 1958 HEPATITIS C SCREENING 09/15/1976 DTAP/TDAP/TD VACCINES (1 - Tdap) 1977 PNEUMOCOCCAL VACCINE 50+ (1 of 1 - PCV) 2008 ZOSTER VACCINE (1 of 2) 2008 DEPRESSION SCREENING 09/06/2024 COVID-19 VACCINE (1 - 2024-26 season) 2025 INFLUENZA VACCINE (#1) 2025 9, 09/29/2018, 08/13/2016, Additional history exists Respiratory Syncytial Virus (RSV) Vaccine Pt: or over 60 yrs (1 - 1-dose 75+ series) 2033 HEPATITIS B VACCINE Aged Out No longe r eligible based on patient's age to complete this topic HIB VACCINE Aged Out No longer eligi ble based on patient's age to complete this topic HPV VACCINE Aged Out No longer eligi ble based on patient's age to complete this topic MENINGOCOCCAL (Group B) VACCINE SHARED DECISION-MAKING Aged Out No longer eligible based on patient's age to complete this topic MENINGOCOCCAL GROUPS A/C/Y/W VACCINE Aged Out No longer eligible based on patient's age to complete this topic Insurance [id number]
--- OUTSIDE RECORDS SUMMARY | 2025-08-26 11:29 | XMS_ITS | Clinical Summary ---
Author Organization [employer] [facility] [employer] Address [address] [place] [address] Care Team Providers Care Accounts Payable Clerk Name Role Phone No, Pcp MILL REPRESENTATIVE Primary Care Provider Unavailabl e Allergies No known active allergies Medications levothyroxine (SYNTHROID) 25 MCG tablet TAKE 1 TABLET BY MOUTH EVERY DAY 0 Active mirtazapine (REMERON ISA-TAB) 45 MG disintegrating tablet Take 45 mg by mouth. Active fexofenadine-pseudo ephedrine (Irene-D 12 Hour) 60-120 mg tablet TAKE 1 TABLET BY MOUTH 2 TIMES A DAY 8 Active Social History Tobacco Use Types Packs/Day Years Used Date Smoking Tobacco: Never Assessed Comments Unknown Sex and Gender Information Value Date Recorded Sex Assigned at Not on file Legal Sex Female 2:39 PM EDT Gender Identity Not on file Sexual Orientation Not on file Last Filed Vital Signs Vital Sign Reading Time Taken Comments Blood Pressure - - Pulse 97 09/11/2020 4:01 PM HVAC TECHNICIAN Temperature 37 C (98.6 F) 09/11/2020 4:01 PM HVAC TECHNICIAN Respiratory Rate - - Oxygen Saturation 95% 09/11/2020 4:01 PM HVAC TECHNICIAN Inhaled Oxygen Concentration - - Weight - - Height - - Body Mass Index - - Plan of Treatment Not on file Medical Devices Not on file Insurance [place] [address] Care Teams Accounts Payable Clerk Relationship Specialty Start Date End Date No, Pcp, MILL REPRESENTATIVE N/A Do not use PCP - General Family Medicine 07/03/20
--- OUTSIDE RECORDS SUMMARY | 2025-08-26 11:29 | XMS_ITS | Continuity of Care Document ---
Author Organization [facility], [id number] [facility] [address] Address [address] [place] [address] Assessment No assessment recorded. Plan of Treatment Reminders Order Date Submit Date Provider Last Modified By Organization Details Last Modified Time Details Appointments ANNUAL - EST 15 026 10:00AM SHAGGY MERAZ Not available Not available Not available Lab None record ed. Referral None record ed. Procedures None record ed. Surgeries None record ed. Imaging None record ed. Medication Orders None record ed. Patient TargetsNo targets recorded. Patient InstructionsNo instructions recorded. Reason for Referral None Reported. 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 Fibromyalg ia, Problem Code: 729.1; Problem Code Type: ICD-9; Startdate: '2001'; Not Available [facility] 5 12:19:23 Uterine fibroid polyp 080305242 Active Uterine Fibroids, Startdate: '1983'; Not Available [facility] 12:19:23 Genital herpes simplex 55888036 Active Genital Herpes, Startdate: '1993'; Problem Code Descriptio n: 'Genital Herpes'; Not Available [facility] 12:19:23 Arthritis 0326551 Active Arthritis, Startdate: '02/13'; Problem Code Descriptio n: 'Arthritis '; Not Available [facility] 5 12:19:23 Gastroeso phageal reflux disease 577583782 Active 2014 Acid Reflux/MARIAM D, Problem Code: 530.81; Problem Code Type: ICD-9; Not Available [facility] 5 12:19:23 Atrophic vulva 606503830 Active 2016 Vulvar atrophy, Problem Code: 624.1; Problem Code Type: ICD-9; Not Available [facility] 5 12:19:23 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 Procedures Surgical History Date Name Laterality Status Provider Name and Address Organization Details Recorded Time 07/05/20 25 Incision & Drainage Procedure Note ([facility]) completed SHAGGY MERAZ [address], [place], [address], [facility] 07/05/2025 13:13:24 05/10/20 25 Date of Last Mammogram completed Marian Amador (TERMED) [place] [facility] 05/30/2025 09:40:36 09/06/19 23 Date of Last Pap Smear completed Marian Amador ([place] [facility] 05/30/2025 09:43:01 09/06/19 22 Date of Last Colonoscopy completed Marian Amador ([place]MED[place] [facility] 05/24/2025 11:23:32 Breast augmentation w/implt completed Not Available [facility] 01/04/2025 14:24:59 Jackie arthrs srg [id number] cuf rpr completed Not Available [facility] 01/04/2025 14:24:59 Appendectomy completed Not Available [facility] 01/04/2025 14:25:00 Laparoscopic cholecystectomy completed Not Available [facility] 01/04/2025 14:25:00 Removal of ovary(s) completed Not Available [facility] 01/04/2025 14:25:00 cataract surgery completed Not Available [facility] 01/04/2025 14:25:00 dilation and curettage completed Not Available [facility] 01/04/2025 14:25:00 tonsillectomy completed Not Available [facility] 01/04/2025 14:25:00 hysterectomy completed Not Available [facility] 01/04/2025 14:25:00 vaginal hysterectomy completed Not Available [facility] 01/04/2025 14:25:01 colonoscopy completed Not Available [facility] 01/04/2025 14:25:01 Dilation and Curettage completed Marian Amador (TERMED) [place] [facility] [facility] 05/30/2025 09:40:44 Orthopedic Surgery completed Marian Amador ([place] [facility] [place] [facility] 05/30/2025 09:40:44 Oophorectomy completed Marian Amador ([place] [facility] [facility] 05/30/2025 09:40:44 Total Hysterectomy completed Marian Amador ([place] [facility] 05/30/2025 09:40:45 Appendectomy completed Marian Amador ([place] [facility] [facility] 05/30/2025 09:40:45 Breast Surgery completed Marian Amador ([place] [facility] [facility] 05/30/2025 09:40:45 Caesarean Section completed Marian Amador ([place] [facility] [place] [facility] 05/30/2025 09:40:45 Colonoscopy completed Marian Amador ([place]MED) [place] [facility] [facility] 05/30/2025 09:40:45 Imaging Results None recorded. Procedure Notes None recorded. Medical Equipment None Reported. Allergies Allergen ID Allergen Name Allergen Category Reaction Reaction Severity Criticality Documentation Date Start Date Code Code System Note Provider Name and Address Organization Details Recorded Time 016326 propoxyph meg hydrochlo ride medicatio n Not available Not available Not available 01/04/2025 01400 RxNorm Aller gyRea ction : 'naus ea, vomit , shake s'; Not Available [facility] 5 12:28:25 692963 Duragesic medicatio n Not available Not available Not available 01/04/2025 18375 8 RxNorm Aller gyRea ction : 'naus ea, vomit , shake s'; Not Available [facility] 5 12:28:25 266738 codeine medicatio n Not available Not available Not available 01/04/2025 2670 RxNorm Aller gyRea ction : 'naus ea, vomit , shake s'; Not Available [facility] 5 12:28:25 158540 diphenhyd ramine hydrochlo ride medicatio n Not available Not available Not available 01/04/2025 1362 RxNorm Dicyc lomin e Diarr hea, Dicyc lomin e Nasal conge stion , Dicyc lomin e Nause a, Dicyc lomin e Vomit ing, Other Diarr hea, Other Nasal conge stion , Other Nause a, Other Vomit ing Not Available [facility] 5 12:28:25 Medications Name Sig Start Date Stop [...] Not Available Not Available Not Available Vitals None Recorded Social History Question Answer Notes LastModified by Zokos Details LastModified Time Tobacco Smoking Status Never Smoker Not Available [facility] 01/04/2025 15:34:10 Do You Have An Advance Directive? Yes [email or web address] Information not available 05/30/2025 If You Are , What Was Your Level Of Alcohol Consumption Prior To ? Occasional [email or web address] Information not available 05/30/2025 How Many Years Have You Consumed Alcohol? 45 [email or web address] Information not available 05/30/2025 What Is Your Level Of Caffeine Consumption? Moderate [email or web address] Information not available 05/30/2025 What Type Of Diet Are You Following? REGULAR [email or web address] Information not available 05/30/2025 How Many Times Per Week Do You Exercise? Less Than 1 Time Per Week SocialHisto ryQuestion: 'Minimal Amount Of Exercise (Once Weekly Or Less)'; Information not available 01/04/2025 What Is Your Relationship Status? [email or web address] Information not available 05/30/2025 Sex: Female Functional Status Question Answer Note LastModified by Zokos Details LastModified Time Do you use any illicit or recreational drugs? No Information not available 01/04/2025 What is your level of alcohol consumption? Occasional Qty: 0-2 per day; Age Start/Stop: 18/ Information not available 01/04/2025 Are you currently employed? No Information not available 05/30/2025 What is your occupation? Note: [email or web address] Information not available 01/04/2025 Mental Status None recorded. Family History Relationship Description Onset Age of this Age Resolved Age Notes LastModified by Organization Details LastModified Time Maternal Grandfather Cerebrovascu lar accident Stroke Not available 09/2024 15:14:53 Maternal Grandfather Alzheimer's disease Alzhei nano's Diseas e [email or web address] Not available 07/05/2025 12:21:35 Father Malignant neoplastic [...] 15:14:54 Maternal Grandmother Disorder of thyroid gland [email or web address] Not available 2024 09:40:30 Maternal Grandmother Hypothyroidi sm [email or web address] Not available 2024 09:40:30 Mother Disorder of thyroid gland [email or web address] Not available 2024 09:40:30 Mother Hypothyroidi sm [email or web address] Not available 2024 09:40:30 Medical History Condition Response Rheumatology- Fibromyalgia/Chronic Pain Y ID- Herpes Y Reviewed with no changes Y GI- Reflux/Ulcers Y Cancer- Skin Y Cancer- Genetic screening Y GI- Irritable Bowel Syndrome Y ID-Other Y Endocrinology- Hypothyroidism Y Rheumatology- Arthritis Y Gynecological History Statement/Question [...] virus, quadrivalent, PF 09/17/2015 completed Not Available [facility] 5 09:39:56 Influenza, split virus, quadrivalent, PF 08/13/2016 completed Not Available [facility] 5 09:39:56 Influenza, split virus, quadrivalent, PF 09/29/2018 completed Not Available [facility] 5 09:39:56 Influenza, split virus, quadrivalent, PF 06/19/2019 completed Not Available [facility] 5 09:39:56 Influenza, MDCK, quadrivalent, PF 06/08/2020 completed Not Available [facility] 5 09:39:56 COVID-19, mRNA, LNP-S, PF, 30 mcg/0.3 mL dose 12/05/2020 completed Not Available [facility] 5 09:39:56 COVID-19, mRNA, LNP-S, PF, 30 mcg/0.3 mL dose 12/26/2020 completed Not Available [facility] 5 09:39:56 Influenza, split virus, quadrivalent, PF 07/11/2021 completed Not Available [facility] 5 09:39:56 Influenza, split virus, quadrivalent, PF 07/27/2022 completed Not Available [facility] 5 09:39:56 Tdap 03/16/2023 completed Not Available [facility] 05/30/2025 09:39:56 Past Encounters Encounter ID Performer Location Encounter Start Date Encounter Closed Date Diagnosis/Indication Diagnosis SNOMED-CT Code Diagnosis ICD10 Code Diagnosis IMO Codes Diagnosis Note [id number] SO KATZ MD [id number] 7 [facility] [address] [place] [address] 07/05/2025 12:21:22 07/05/2025 13:12:18 Lesion of vulva 124308244 N90.89 176948 07/05/25-u se warm, epsom salt soaks as needed-yuridia p pressure to area with 4x4s to prevent from refilling Health Concerns Section Related Observation LastModified by Organization Detai ls LastModified Time None Recorded Concern Status LastModified by Organization Details LastModified Time None Recorded Payers Encounter Date Sequence Insurance Name Policy Number Policy Webb Covered Member ID Webb Member ID Guarantor Name 07/05/2025 1 [employer] 105 Enrike Guevara Head [id number] Enrike Head Notes Date Note Type Note Provider Name and Address Organization Details Recorded Time 07/05/2025 text/html 07/05/25 here for possible blood blister on labia x 2 days. felt a little itching 2 days ago and today noticed a spot. denies any use of blood thinners. would like to us to I&D blister today. -karl [facility] [address], [place], [address], [facility] 07/05/2025 13:14:37 OBGyn Episode No OBEpisode recorded.
[2025-08-26 12:09] VITALS: BP 118/75; PULSE 97; RESP 20; TEMP 36.6; O2SAT 99
--- NOTE | 2025-08-26 12:42 | ED_ITS ---
HPI - URI/Sore Throat General Chief Complaint: Upper Respiratory Infection Stated Complaint: sinus patient presents to the [facility] with complaints of fever, chills, body aches, significant sinus pain, nasal congestion, and headache that began 2 days ago. Patient reports she has had a head cold for the last 2 weeks with minimal nasal drainage and nasal congestion noted she has been using her normal sinus medications due to history of sinus infections usually about twice a year. Patient reports that which she believes is going on. No other known sick contacts. She reports using DayQuil over the last few days and that is controlling fever. Related Data Home Medications ?Medication ?Instructions ?Recorded ?Confirmed ?Last Taken ?Type albuterol sulfate 90 mcg/actuation inhalation 08/26/25 Unknown History aerosol inhaler amoxicillin 875 mg tablet mg 08/26/25 Unknown History semaglutide (weight loss) 1.7 mg subcut 08/26/25 Unkn own History mg/0.75 mL subcutaneous pen injector (Wegovy) Allergies Allergy/AdvReac Type Severity Reaction Status Date / Time codeine AdvReac Intermediate N & V, Verified 08/26/25 12:15 DIZZINESS acetaminophen (From AdvReac Mild Other Verified 08/26/25 12:15 Darvocet-N) propoxyphene (From AdvReac Mild Other Verified 08/26/25 12:15 Darvocet-N) Review of Systems Constitutional: Constitutional: Reports as per HPI, Reports chills, Reports fatigue, Reports fever(s) and Denies weakness Eyes: Eyes: Reports no additional eye complaints ENT: Reports as per HPI, Denies vertigo, Denies dizziness, Reports nasal congestion and Reports sore throat Comments: sinus pain Cardiovascular: Cardiovascular: Reports no additional cardiovascular complaints Respiratory: Respiratory: Reports as per HPI, Reports chest congestion, Reports cough, Denies dyspnea and Denies wheezing Gastrointestinal: Gastrointestinal: Reports no additional gastrointestinal complaints Genitourinary: Genitourinary: Reports no additional female genitourinary complaints Musculoskeletal: Musculoskeletal: Reports as per HPI, Denies back pain and Denies myalgias Integumentary/Breasts: Skin/Breast: Reports as per HPI, Denies erythema, Denies rash and Denies skin ulcer Neurologic: Reports as per HPI, Denies vertigo, Denies dizziness, Reports headache(s) and Denies weakness Psychiatric: Psychiatric: Reports no additional psychiatric complaints Endocrine: Endocrine: Reports no additional endocrine complaints Hematologic/Lymphatic: Hematologic/Lymphatic: Reports no additional hematologic/lymphatic complaints Allergic/Immunologic: Allergic/Immunologic: Reports as per HPI Comments: seasonal allergies history of sinus infections Exam Const: General: healthy appearing and no acute distress Nutritional Appearance: well nourished Orientation/consciousness: patient oriented x3 Limitations: no limitations HENMT: Head: normal to inspection Ears: external ears normal and TM's normal bilaterally Face/Nose/Sinus: Normal external nose present and Normal nares present Face and sinus: normal facial exam and sinus tenderness maxillary Mouth: Yes Normal oral and palatal mucosa present, Yes lip normal and Yes moist mucous membranes Throat: posterior oropharynx abnormal ( minimal erythema and edema) Neck: Neck: normal visual inspection and no lymphadenopathy Resp: Effort & Inspection: normal respiratory effort Auscultation: clear to auscultation bilaterally Cardio: Rate: regular rate Rhythm: regular rhythm Skin: General skin exam: normal color Rashes: no rashes Wounds: no wounds Neuro: General: patient oriented x3 Speech: normal speech Gait exam (Neuro): Normal gait present Extrem: General: normal to inspection and no clubbing, cyanosis or edema Psych: Mental Status: mental status grossly normal Affect: normal affect Attitude: cooperative Course Course Level of Care: Express Care Visit Vital Signs Vital signs: Vital Signs Temperature 97.8 F 08/26/25 12:09 Pulse Rate 97 08/26/25 12:09 Respiratory Rate 20 08/26/25 12:09 Blood Pressure 118/75 08/26/25 12:09 Pulse Oximetry 99 08/26/25 12:09 Oxygen Delivery Room Air 08/26/25 12:09 Temperature 97.8 F 08/26/25 12:09 Pulse Rate 97 08/26/25 12:09 Respiratory Rate 20 08/26/25 12:09 Blood Pressure 118/75 08/26/25 12:09 Pulse Oximetry 99 08/26/25 12:09 Oxygen Delivery Room Air 08/26/25 12:09 [facility] Narrative Medical decision making narrative: positive COVID, history of sinus infections noted we will place patient on Paxil open but occasionally this has not been covered by insurance will send antibiotics if this medication is not covered. The patient was evaluated by myself in the express care. History is obtained from patient who is an independent historian and physical exam was performed. Available medical records were reviewed at this time. Exam findings show no acute concerns or changes; patient is non-toxic appearing and is in no distress. Patient is appropriate for outpatient treatment and follow-up. I have evaluated and discussed social determinants of health with the patient that could potentially impact subsequent diagnosis and treatment plans. Differential diagnosis and treatment plan were discussed with the patient. Patient agrees with discussion and after shared medical decision making agrees with plan of care. All questions were answered to the patient's satisfaction. Differential Diagnosis Differential Diagnosis: sinus infection, influenza, COVID, upper respiratory infection Medical Records I have reviewed the following patient records and this information was taken into consideration when formulating the assessment and plan.: previous labs, previous ER visits, previous hospitalizations and previous clinic visits Lab Data MDM Lab Attestation statement: I personally reviewed the patient's lab results. Lab results narrative: positive COVID Discharge Plan Discharge Clinical Impression: Sinusitis, COVID Patient Disposition: Home Condition: Stable Instructions: Antibiotic Form, Sinusitis (ED), COVID-19 (Coronavirus Disease 2019) (ED) Additional Instructions: COVID-19 DISCHARGE The following recommendations have been made by the CDC and local Health Departments, regarding COVID-19: If You Test Positive for COVID-19 you should wear a mask until 10 days from the start of your symptoms. If you have minimal symptoms and no fever you do not have to quarantine. If you do have a fever you should quarantine until your fever free for 24 hours. Recommend antihistamine such as Benadryl at night time and Claritin/Zyrtec/Irene during the day. Also using steroid nasal spray like Flonase can help with symptoms and congestion. Using sudafed for significant congestion will also give some relief. Cough syrup may cause drowsiness; avoid driving or take it at night time. Use inhaler as needed for cough, wheezing, shortness of breath or chest tightness. Also, recommend symptomatic treatment includes: rest, fluids, increase humidity of the air at home. Recommend Acetaminophen or nonsteroidal anti-inflammatory agents(NSAIDs) as directed in the bottle to reduce fever and/pain/headache. Avoid smoking/second-hand smoke. Limit visits to areas with large crowds. Frequent hand washing or hand hr generalist is one of the best ways to prevent spread of infection.. WHEN TO SEEK ER EVALUATION/TREATMENT Severe/persistent shortness of breath or difficulty breathing Elevated, persistent fevers without resolution with fever-reducing medications Chest pain Extreme fatigue/lethargy Complications of pre-existing disease Patient Language: Sudanese Prescriptions: New doxycycline monohydrate 100 mg capsule 100 mg PO BID Qty: 20 0RF Paxlovid 300 mg (150 mg x 2)-100 mg tablets,dose pack See Rx Instructions .ROUTE .COMPLEX Qty: 30 0RF Rx Instructions: take TWO 150 mg tablets of nirmatrelvir with ONE 100 mg tablet of ritonavir twice daily for 5 days No Action amoxicillin 875 mg tablet albuterol sulfate 90 mcg/actuation HFA aerosol inhaler INHALATION Wegovy 1.7 mg/0.75 mL pen injector SUBCUT Follow-up/Referrals: Pam,Markus Mesa MD [Primary Care Provider] Time of Disposition: 12:45
[2025-08-26 12:48] LABS: EDCOVIDSCREEN Positive (Negative); EDINFLUASCREEN Negative (Negative); EDINFLUBSCREEN Negative (Negative)
== END 2025-08-26 12:48 | disposition home or self-care (01) ==
PROVIDERS: Emergency Provider Nurse Practitioner Family; PCP Family Medicine
DX: J32.9 Chronic sinusitis, unspecified (principal); U07.1 COVID-19
CPT/HCPCS: 87426; 87804; 99203; G0463